=== PATIENT | male | born 1980 | race Caucasian/White ===

== ENCOUNTER 2017-12-12 03:31 | Emergency (ER) | payer BC ==
[~2017-12-12] VITALS: Ht 177.8 cm; Wt 108.0 kg
[2017-12-12] MEDS ORDERED: IBUPROFEN 600MG TABLET PO ONE (05:15)
[2017-12-12] MEDS ORDERED: ACETAMINOPHEN 325MG TABLET PO ONE (06:45)
[2017-12-12 07:29] VITALS: BP 137/74
== END 2017-12-12 07:33 | disposition home or self-care (01) ==
LOC: ER 03:31
DX: S80.01XA Contusion of right knee, initial encounter (principal); F12.10 Cannabis abuse, uncomplicated; W01.0XXA Fall on same level from slipping, tripping and stumbling without subsequent striking against object, initial encounter; Y93.89 Activity, other specified; Y92.89 Other specified places as the place of occurrence of the external cause; Y99.8 Other external cause status
CPT/HCPCS: 73562; 99284; L1830; Z7610